=== PATIENT | male | born 1985 | race Caucasian/White ===

== ENCOUNTER 2022-05-14 10:31 | Emergency (ER) | payer OTHER ==
[~2022-05-14] VITALS: Ht 177.8 cm; Wt 100.0 kg
[2022-05-14] MEDS ORDERED: IBUPROFEN 600MG TABLET PO STA (12:08)
[2022-05-14] MEDS ORDERED: IBUPROFEN 600MG TABLET PO SCH (12:30)
[2022-05-14 13:00] VITALS: BP 171/95
[2022-05-14] MEDS ORDERED: NAPR-681 PO (14:26)
== END 2022-05-14 14:44 | disposition home or self-care (01) ==
LOC: ER 10:31
DX: M79.674 Pain in right toe(s) (principal); I10 Essential (primary) hypertension
CPT/HCPCS: 73630; 99283